=== PATIENT | male | born 1975 | race Caucasian/White ===

== ENCOUNTER 2016-09-16 18:53 | Emergency (ER) | payer SELFPAY ==
[~2016-09-16] VITALS: Ht 172.7 cm; Wt 73.0 kg
[~2016-09-16 18:53] MED LIST: KEFLEX500 MG PO; PERCOCET 5/31 TABLET PO
[2016-09-16 19:26] VITALS: BP 157/72
[2016-09-16] MEDS ORDERED: PEN-VEE K,VEET500 MG PO (21:05)
[2016-09-16] MEDS ORDERED: INDOCIN50 MG PO (21:05)
== END 2016-09-16 21:29 | disposition home or self-care (01) ==
LOC: EME 18:53 → RME 18:53
DX: K02.9 Dental caries, unspecified (principal)
CPT/HCPCS: 99281; 99284